=== PATIENT | male | born 1975 | race African-American/Black ===

== ENCOUNTER 2022-03-23 21:12 | Inpatient (IN) | payer MEDICAID ==
[~2022-03-23] VITALS: Ht 175.3 cm; Wt 84.4 kg
[2022-03-23 22:30] LABS: BASOPHILS % (AUTO) 0.3 % (0.0-2.0); EOSINOPHILS % (AUTO) 1.1 % (1.0-6.0); HEMATOCRIT 43.5 % (41-53); HEMOGLOBIN 13.9 g/dL (13.5-17.5); LYMPHOCYTES # (AUTO) 2.7 K/uL (1.0-4.8); LYMPHOCYTES % (AUTO) 30.1 % (22.0-44.0); MEAN CORPUSCULAR HEMOGLOBIN 24.8 pg (26.0-34.0); MEAN CORPUSCULAR HGB CONC 31.8 G/dL (31.0-37.0); MEAN CORPUSCULAR VOLUME 78 fL (80-100); MONOCYTES # (AUTO) 0.7 K/uL (0.1-1.0); MONOCYTES % (AUTO) 7.8 % (2.0-9.0); NEUTROPHILS # (AUTO) 5.4 K/uL (1.8-7.7); NEUTROPHILS % (AUTO) 60.7 % (40.0-70.0); PLATELET COUNT (AUTO) 325 K/uL (150-450); RED BLOOD CELL COUNT(AUTO) 5.59 MIL/uL (4.50-5.90); RED CELL DISTRIBUTION WIDTH 14.6 % (11.5-14.5)
[2022-03-23 22:47] LABS: ANION GAP 5 mmol/L (8-16); CALCIUM, TOTAL 9.2 mg/dL (8.8-10.5); CARBON DIOXIDE 31 mmol/L (22-29); CHLORIDE 102 mmol/L (98-107); CREATININE 1.04 mg/dL (0.60-1.30); GLUCOSE,RANDOM 146 mg/dL (70-110); POTASSIUM 4.1 mmol/L (3.5-5.1); SODIUM SERUM 138 mmol/L (136-145); UREA NITROGEN, BLOOD 10 mg/dL (7-18)
[2022-03-23 22:52] LABS: ALANINE AMINOTRANSFERASE 21 U/L (12-78); ALBUMIN 3.8 g/dL (3.4-5.0); ALKALINE PHOSPHATASE 96 U/L (46-116); ASPARTATE AMINOTRANSFERASE 22 U/L (15-37); BILIRUBIN,TOTAL 0.3 mg/dL (0.1-1.0)
[2022-03-23 23:01] LABS: GLOMERULAR FILTR. RATE CALC > 60 mL/min (>60)
[2022-03-24] MEDS ORDERED: HALOPERIDOL LACTATE 5 MG/ML VIAL ONE (07:27)
[2022-03-24] MEDS ORDERED: LORazepam 2 MG/ML VIAL ONE (07:27)
[2022-03-24] MEDS ORDERED: DiphenhydrAMINE HCL 50 MG/ML VIAL ONE (07:27)
[2022-03-24] MEDS ORDERED: DiphenhydrAMINE HCL 50 MG/ML VIAL IM ONE (07:30)
[2022-03-24] MEDS ORDERED: HALOPERIDOL LACTATE 5 MG/ML VIAL IM ONE (07:30)
[2022-03-24] MEDS ORDERED: LORazepam 2 MG/ML VIAL IM ONE (07:30)
[2022-03-24 12:07] LABS: COVID AG,FIA SOURCE NASAL SWAB
[2022-03-24 13:53] VITALS: BP 132/81
[2022-03-24] MEDS ORDERED: PNEUMOCOCCAL VACCINE POLYVALENT 0.5 ML VIAL [PPSV23] IM. ONE (14:15)
[2022-03-24 16:21] VITALS: BP 126/74
[2022-03-25 00:12] VITALS: BP 126/74
[2022-03-25] MEDS ORDERED: MAGNESIUM HYDROXIDE SUSPENSION 30 ML UDCUP PO PRN (22:00)
[2022-03-25] MEDS ORDERED: OMEPRAZOLE 20 MG CAPSULE PO PRN (22:00)
[2022-03-25] MEDS ORDERED: ALBUTEROL SULFATE HFA 90 MCG/PUFF 8 GM INHALER IH PRN (22:00)
[2022-03-25] MEDS ORDERED: CloNIDine HCL 0.1 MG TABLET PO PRN (22:00)
[2022-03-25] MEDS ORDERED: PETROLATUM,WHITE 28 GM JELLY TP PRN (22:00)
[2022-03-25] MEDS ORDERED: MAG HYDROX/AL HYDROX/SIMETH ES 30 ML SUSPENSION UDCUP PO PRN (22:00)
[2022-03-25] MEDS ORDERED: BENZOCAINE/MENTHOL LOZENGE PO PRN (22:00)
[2022-03-25] MEDS ORDERED: LOPERAMIDE HCL 2 MG CAPSULE PO PRN (22:00)
[2022-03-25] MEDS ORDERED: ACETAMINOPHEN 325 MG TABLET PO PRN (22:00)
[2022-03-25] MEDS ORDERED: BACITRACIN 28 GM OINTMENT TP PRN (22:00)
[2022-03-25] MEDS ORDERED: DOCUSATE SODIUM 100 MG CAPSULE PO PRN (22:00)
[2022-03-25] MEDS ORDERED: ONDANSETRON HCL 4 MG TABLET PO PRN (22:00)
[2022-03-26 08:55] VITALS: BP 122/70
[2022-03-26] MEDS: RisperiDONE 3 MG TABLET PO SCH ×2 (09:00→20:00)
[2022-03-26] MEDS ORDERED: RISP3TAB35 PO (16:19)
[2022-03-26] MEDS: ZOLPIDEM TARTRATE 10 MG TABLET PO PRN (20:00)
[2022-03-26 20:34] VITALS: BP 126/71
[2022-03-27] MEDS: RisperiDONE 3 MG TABLET PO SCH ×2 (09:00→12:31)
[2022-03-27] MEDS: LORazepam 2 MG TABLET PO PRN (12:17)
[2022-03-27] MEDS: DIVALPROEX SODIUM 500 MG DR TABLET PO SCH (21:05)
[2022-03-27] MEDS: RisperiDONE 2 MG TABLET PO SCH (21:05)
[2022-03-28 08:08] LABS: FREE T4 (FREE THYROXINE) 0.86 ng/dL (0.76-1.46); THYROID STIMULATING HORMONE 2.45 uIU/mL (0.36-3.74)
[2022-03-28] MEDS: RisperiDONE 2 MG TABLET PO SCH ×2 (09:06→20:39)
[2022-03-28] MEDS: DIVALPROEX SODIUM 500 MG DR TABLET PO SCH ×2 (09:06→20:39)
[2022-03-28] MEDS: LORazepam 2 MG TABLET PO PRN ×2 (16:37→20:39)
[2022-03-28 20:39] VITALS: BP 127/74
[2022-03-28] MEDS: ZOLPIDEM TARTRATE 10 MG TABLET PO PRN (20:39)
[2022-03-29] MEDS: RisperiDONE 2 MG TABLET PO SCH ×2 (08:53→21:38)
[2022-03-29] MEDS: DIVALPROEX SODIUM 500 MG DR TABLET PO SCH ×2 (08:53→21:38)
[2022-03-29] MEDS: LORazepam 2 MG TABLET PO PRN ×4 (08:53→21:38)
[2022-03-29] MEDS: IBUPROFEN 600 MG TABLET PO PRN (14:19)
[2022-03-29 20:26] VITALS: BP 111/62
[2022-03-29] MEDS: ZOLPIDEM TARTRATE 10 MG TABLET PO PRN (21:38)
[2022-03-30] MEDS: LORazepam 2 MG TABLET PO PRN ×3 (08:48→20:57)
[2022-03-30] MEDS: RisperiDONE 2 MG TABLET PO SCH ×2 (08:48→20:57)
[2022-03-30] MEDS: DIVALPROEX SODIUM 500 MG DR TABLET PO SCH ×2 (08:48→20:57)
[2022-03-30] MEDS: HALOPERIDOL 5 MG TABLET PO PRN ×2 (16:54→20:57)
[2022-03-30 20:28] VITALS: BP 132/82
[2022-03-30] MEDS: ZOLPIDEM TARTRATE 10 MG TABLET PO PRN (20:57)
[2022-03-31 08:31] VITALS: BP 130/72
[2022-03-31] MEDS: LORazepam 2 MG TABLET PO PRN (08:45)
[2022-03-31] MEDS: RisperiDONE 2 MG TABLET PO SCH ×2 (08:45→21:01)
[2022-03-31] MEDS: DIVALPROEX SODIUM 500 MG DR TABLET PO SCH ×2 (08:45→21:01)
[2022-03-31 16:58] VITALS: BP 128/68
[2022-03-31] MEDS: IBUPROFEN 600 MG TABLET PO PRN (16:58)
[2022-03-31 20:25] VITALS: BP 119/62
[2022-03-31] MEDS: ZOLPIDEM TARTRATE 10 MG TABLET PO PRN (21:01)
[2022-04-01] MEDS: RisperiDONE 2 MG TABLET PO SCH (08:23)
[2022-04-01] MEDS: DIVALPROEX SODIUM 500 MG DR TABLET PO SCH (08:23)
[2022-04-01] MEDS: LORazepam 2 MG TABLET PO PRN (08:24)
[2022-04-01] MEDS: IBUPROFEN 600 MG TABLET PO PRN (12:59)
[2022-04-01] MEDS ORDERED: DIVA-112 PO (13:20)
== END 2022-04-01 15:45 | disposition home or self-care (01) | DRG 751 ==
LOC: EMS 21:15 → B3A 03-24 11:58 → EDBD 03-24 11:58
PROVIDERS: ADMIT Psychiatry & Neurology Psychiatry; ATTEND Psychiatry & Neurology Psychiatry
PROC: 3E0234Z Introduction of Serum, Toxoid and Vaccine into Muscle, Percutaneous Approach (ICD-10-PCS; principal; 2022-03-29)
DX: F29 Unspecified psychosis not due to a substance or known physiological condition (principal); F22 Delusional disorders; Z20.822 Contact with and (suspected) exposure to COVID-19; F41.9 Anxiety disorder, unspecified; G47.00 Insomnia, unspecified; K59.00 Constipation, unspecified; Z78.1 Physical restraint status; Z23 Encounter for immunization
CPT/HCPCS: 80053; 80164; 84439; 84443; 85025; 99285; G0480; J1200; J1630; J2060